=== PATIENT | male | born 1980 | race Caucasian/White ===

== ENCOUNTER 2025-06-26 11:25 | Emergency (ER) | payer MEDICAID ==
[~2025-06-26] VITALS: Ht 165.1 cm; Wt 72.0 kg
[2025-06-26 11:30] VITALS: O2SAT 98
[2025-06-26] MEDS: SODIUM CHLORIDE 0.9% 1,000 ML IV ONE (12:34)
[2025-06-26] MEDS: DEXAMETHASONE 10 MG/ML VIAL IV ONE (12:34)
[2025-06-26] MEDS: METOCLOPRAMIDE HCL 10MG/2ML VIAL IV ONE (12:34)
[2025-06-26 12:37] LABS: BASOPHILS % 0.3 % (0.0-2.0); EOSINOPHILS % 1.0 % (0.0-5.0); HEMATOCRIT. 39.8 % (42.0-52.0); HEMOGLOBIN. 13.3 g/dL (14.0-18.0); LYMPHOCYTES % 23.0 % (20.0-50.0); MEAN PLATELET VOLUME 7.6 fl (7.4-10.4); MONOCYTES % 9.4 % (2.0-8.0); NEUTROPHILS % 66.3 % (40.0-76.0); PLATELET 167 x1000/uL (130-400); RED BLOOD CELL COUNT 4.60 mill/uL (4.7-6.1); RED CELL DISTRIBUTION WIDTH 15.4 % (11.6-14.6)
[2025-06-26 13:02] LABS: CREATININE 0.6 mg/dL (0.6-1.3); UREA NITROGEN BLOOD 6 mg/dL (9-23)
[2025-06-26 13:04] LABS: TROPONIN I HIGH SENSITIVITY 34 ng/L (3.0-53)
[2025-06-26 14:17] VITALS: BP 129/80; PULSE 69; RESP 16; TEMP 36.8; O2SAT 96
[2025-06-26] MEDS ORDERED: ONDA4TAB50 MT (14:27)
[2025-06-26 14:32] LABS: TROPONIN I HIGH SENSITIVITY 29 ng/L (3.0-53)
== END 2025-06-26 14:45 | disposition home or self-care (01) ==
LOC: ER 11:29 → CMPBEDREQ 14:52
DX: R51.9 Headache, unspecified (principal); R11.0 Nausea; R07.89 Other chest pain; R06.02 Shortness of breath
CPT/HCPCS: 80048; 83880; 83690; 83735; 85025; 84484; 36415; 71045; 70450; 96361; 96374; 96375; 99285; J1100; J2765; J7030; Z7610; A4606